=== PATIENT | male | born 1995 | race Caucasian/White ===

== ENCOUNTER → 2023-04-03 | Outpatient (CLI) | payer OTHER ==
[2023-04-03 17:57] LABS: IMMUNOGLOBULIN A 184.1 MG/DL (40-350)
[2023-04-03 17:58] LABS: THYROID STIMULATING HORMONE 2.122 uIU/ML (0.55-4.78)
[2023-04-03 18:00] LABS: FREE T4 1.23 NG/DL (0.89-1.76)
== END ==
LOC: M LAB 16:46
PROVIDERS: ATTEND Internal Medicine Gastroenterology
DX: K58.0 Irritable bowel syndrome with diarrhea (principal); K62.5 Hemorrhage of anus and rectum; R12 Heartburn; F17.210 Nicotine dependence, cigarettes, uncomplicated; Z80.0 Family history of malignant neoplasm of digestive organs; Z84.0 Family history of diseases of the skin and subcutaneous tissue
CPT/HCPCS: 36415; 82656; 82784; 83993; 84439; 84443; 86364; 87507; G0463

== ENCOUNTER 2023-05-23 10:43 | Day surgery (SDC) | payer OTHER ==
[~2023-05-23] VITALS: Ht 180.3 cm; Wt 99.1 kg
[~2023-05-23 10:43] MED LIST: HYDR-643 PO; IBUP200C25 PO; METH-1164 PO; NS 1,000 ML IV ONE; ONDA-83 PO; PREG75CA2 PO; SERT-141 PO; TRAZ-257 PO
[2023-05-23] MEDS ORDERED: fentaNYL 100 MCG/2 ML INJECTION As Ordered ONE (12:54)
[2023-05-23] MEDS ORDERED: propofoL 200 MG/20 ML VIAL As Ordered ONE (13:09)
[2023-05-23 13:34] VITALS: BP 129/71; O2SAT 97
== END 2023-05-23 14:02 | disposition home or self-care (01) ==
LOC: M OPP 10:43
PROVIDERS: ATTEND Internal Medicine Gastroenterology
DX: R19.4 Change in bowel habit (principal); R12 Heartburn; Z79.1 Long term (current) use of non-steroidal anti-inflammatories (NSAID); Z79.899 Other long term (current) drug therapy
CPT/HCPCS: 43235; 45378; J3010